=== PATIENT | female | born 1990 | race African-American/Black ===

== ENCOUNTER 2018-02-28 10:11 | Emergency (ER) | payer OTHER ==
[~2018-02-28] VITALS: Ht 167.6 cm; Wt 86.2 kg
--- NOTE | 2018-02-28 10:11 | NUR ---
ELI AND CHRIS FROM CORRECTION. WITNESSED SZ. NAD NOTED. SZ PRECAUTIONS PLACED. RR EVEN AND UNLABORED. VSS. MD AT BEDSIDE FOR EVAL.
[2018-02-28] MEDS ORDERED: LORAZEPAM INJ 2 MG/ML VIAL ONE (10:19)
[2018-02-28 10:22] LABS: BASOPHILS # (AUTO) 0.1 /CMM (0.0-0.2); BASOPHILS % (AUTO) 0.6 % (0.0-2.0); EOSINOPHILS % (AUTO) 1.3 % (0.0-6.0); HEMATOCRIT 42 % (33-45); HEMOGLOBIN 14.5 g/dL (11.5-14.8); LYMPHOCYTES # (AUTO) 2.8 /CMM (0.8-4.8); LYMPHOCYTES % (AUTO) 21.5 % (20.0-44.0); MEAN CORPUSCULAR HEMOGLOBIN 29 PG (26.0-33.0); MEAN CORPUSCULAR HGB CONC 34 g/dl (31.0-36.0); MEAN CORPUSCULAR VOLUME 84 fL (82-100); MONOCYTES # (AUTO) 0.9 /CMM (0.1-1.30); NEUTROPHILS # (AUTO) 8.8 /CMM (1.8-8.9); NEUTROPHILS % (AUTO) 69.6 % (43.0-81.0); PLATELET COUNT (AUTO) 304 /CMM (150-450); RDW COEFFICIENT OF VARIATION 12.4 (11.5-15.0); RED BLOOD CELL COUNT(AUTO) 5.03 MIL/uL (4.0-5.2); WHITE BLOOD COUNT (AUTO) 12.8 K/uL (4.3-11.0)
[2018-02-28] MEDS ORDERED: LORAZEPAM INJ 2 MG/ML VIAL IVP ONE (10:30)
[2018-02-28 10:39] LABS: CALCIUM, SERUM 9.2 mg/dL (8.5-10.1); CARBON DIOXIDE 18 mmol/L (21-32); CHLORIDE 102 mmol/L (98-107); CREATININE 1.2 mg/dL (0.6-1.3); GLUCOSE 126 mg/dL (74-106); POTASSIUM 3.2 mmol/L (3.5-5.1); SODIUM SERUM 139 mmol/L (136-145); UREA NITROGEN, BLOOD 13 mg/dL (7-18)
[2018-02-28 10:46] LABS: ALANINE AMINOTRANSFERASE 27 U/L (12-78); ALBUMIN 3.8 g/dL (3.4-5.0); ALCOHOL, BLOOD < 3 mg/dL (0-0); ALKALINE PHOSPHATASE 95 U/L (46-116); ASPARTATE AMINOTRANSFERASE 32 U/L (15-37); BILIRUBIN,DIRECT 0.1 mg/dL (0.0-0.2); BILIRUBIN,TOTAL 0.6 mg/dL (0.2-1.0); TOTAL PROTEIN, SERUM 8.4 g/dL (6.4-8.2)
--- NOTE | 2018-02-28 11:30 | NUR ---
PT BACK FROM CT
[2018-02-28 12:28] VITALS: BP 126/74
== END 2018-02-28 12:30 ==
LOC: ER 10:13
DX: R56.9 Unspecified convulsions (principal); R45.1 Restlessness and agitation
CPT/HCPCS: 36415; 70450; 80048; 80076; 84703; 85025; 96374; 99285; A4606; G0480; J2060; Z7610